=== PATIENT | male | born 1950 | race African-American/Black ===

== ENCOUNTER 2021-04-01 14:17 | Observation (INO) | payer OTHER ==
[2021-04-01 15:27] LABS: Absolute Lymphocytes (CBC) 1.1 K/uL (0.7-4.9); Basophils % 0.2 % (0-1.3); Hematocrit 39.4 % (39.6-49.0); Lymphocytes % 16.6 % (15.3-44.8); MPV 8.4 fL (7.6-11.3); RBC Red Blood Cell Count 4.33 M/uL (4.33-5.43)
--- NOTE | 2021-04-01 15:30 | RAD REPORT ---
EXAM DESCRIPTION: CT - CTHCSPWOC - 04/01/2021 2:56 pm CLINICAL HISTORY: syncope, head and neck injury COMPARISON: No comparisons TECHNIQUE: Axial 5 mm thick images of the head were obtained. Axial 2 mm thick images of the cervic al spine were obtained with sagittal and coronal reconstruction images generated and reviewed. All CT scans are performed using dose optimization technique as appropriate and may include automated exposure control or mA/KV adjustment according to patient size. FINDINGS: No intracranial hemorrhage, mass, edema or acute intracranial finding. No suspicion for ac [place] infarction. Mild atrophy and chronic ischemic changes are present. Ventricles are in proportion t o the amount of volume loss. Dense arterial tree calcifications are present. Mastoid air cells and pa ranasal sinuses are clear. No globe or orbit abnormality seen. Cervical bodies are normal in height. There is minimal 2 mm retrolisthesis C5 on C6 with significant disc space narrowing and endplate spurring. Alignment is otherwise normal. C6-7 and C7- S1 disc space narrowing also present. No fracture or acute bony abnormality. Facet joint degenerative changes are present. This is prominent on the right at C3-4 without stenosis. Left foraminal stenosis present at C5-6. Central canal detail is inherently limited. No paraspinal mass or hematoma. IMPRESSION: Patient has atrophy and chronic ischemic changes present but no hemorrhage or acute intr acranial finding. Cervical spine degenerative changes are present as detailed. No fracture or acute finding seen.
[2021-04-01 15:36] LABS: Protime INR 1.04
[2021-04-01 15:45] LABS: ALT/SGPT 43 U/L (12-78); AST/SGOT 20 U/L (15-37); Alkaline Phosphatase 63 U/L (45-117); BUN Blood Urea Nitrogen 23 mg/dL (7-18); Bicarbonate 28 mmol/L (21-32); Bilirubin Direct 0.1 mg/dL (0-0.2); Bilirubin Total 0.6 mg/dL (0.2-1.0); Creatine Phosphokinase 106 U/L (39-308); Glucose Level 96 mg/dL (74-106); Lipase 196 U/L (73-393); Magnesium 2.5 mg/dL (1.8-2.4); Potassium 4.4 mmol/L (3.5-5.1); Sodium Level 143 mmol/L (136-145); Troponin (Emerg Dept Use Only) < 0.02 ng/mL (0.0-0.045)
[2021-04-01 15:52] LABS: CKMB Creatine Kinase MB < 1.0 ng/mL (1.0-3.6)
[2021-04-01] MEDS ORDERED: NA CHLORIDE 0.9% 1,000 ML ONE (16:13)
[2021-04-01 16:39] LABS: Urine Blood Negative (Negative); Urine Glucose Negative (Negative); Urine Protein Negative (Negative); Urine Specific Gravity 1.025 (1.005-1.030)
--- NOTE | 2021-04-01 16:59 | ER ---
Nurse's Notes [facility] Name: Fady Burgess Age: 70 yrs Sex: Male : 1950 Arrival Date: 04/01/2021 Time: 14:21 Bed 18 Private MD: Diagnosis: Nonspecific low blood-pressure reading-SYNCOPE Presentation: 04/01 14:37 Chief complaint: Patient states: I have been feeling dizzy on and off since about 7 ld1 months ago. Today I was outside talking with my neighbor and I fainted. I took my BP and it was 70/64. Upon arrival to ER BP is 120/65. Coronavirus screen: At this time, the client does not indicate any symptoms associated with coronavirus-19. Ebola Screen: No symptoms or risks identified at this time. Initial Sepsis Screen: Does the patient meet any 2 criteria? No. Patient's initial sepsis screen is negative. Does the patient have a suspected source of infection? No. Patient's initial sepsis screen is negative. Risk Assessment: Do you want to hurt yourself or someone else? Patient reports no desire to harm self or others. Onset of symptoms was April 01, 2021. 14:37 Method Of Arrival: Ambulatory ld1 14:37 Acuity: JOAN 3 ld1 Triage Assessment: 14:40 General: Appears in no apparent distress. comfortable, Behavior is calm, cooperative, ld1 appropriate for age. Pain: Denies pain. EENT: No signs and/or symptoms were reported regarding the EENT system. Neuro: Level of Consciousness is awake, alert, obeys commands, Oriented to person, place, time, situation. Cardiovascular: Capillary refill < 3 seconds Patient's skin is warm and dry. Respiratory: Airway is patent Respiratory effort is even, unlabored, Respiratory pattern is regular, symmetrical. GI: Abdomen is round non-distended. : No signs and/or symptoms were reported regarding the genitourinary system. Derm: No signs and/or symptoms reported regarding the dermatologic system. Musculoskeletal: No signs and/or symptoms reported regarding the musculoskeletal system. Historical: - Allergies: 14:39 No Known Allergies; ld1 - Home Meds: 14:40 benazepril 10 mg oral tab 1 tab once daily [Active]; atorvastatin 20 mg oral tab 1 tab ld1 once daily [Active]; alfuzosin 10 mg oral Tb24 1 tab once daily [Active]; finasteride 5 mg oral tab 1 tab once daily [Active]; Centrum Ultra Men's 8 mg iron- 200 mcg-600 mcg oral tab [Active]; - PMHx: 14:40 Hypertensive disorder; Hypercholesterolemia; BPH; ld1 - PSHx: 14:40 Prostate surgery; ld1 - Immunization history:: Adult Immunizations up to date, Client reports receiving the 2nd dose of the Covid vaccine. - Social history:: Smoking status: Patient denies any tobacco usage or history of. Patient uses alcohol, occasionally. Patient/guardian denies using alcohol, street drugs, The patient lives with family. - Family history:: not pertinent. Screenin:30 Abuse screen: Denies threats or abuse. sl2 16:30 Nutritional screening: No deficits noted. Tuberculosis screening: No symptoms or risk sl2 factors identified. Never had TB. Possible symptoms: None Risk factors: None. Fall Risk None identified. No fall in past 12 months (0 pts). No secondary diagnosis (0 pts). No IV (0 pts). Ambulatory Aid- None/Bed Rest/Nurse Assist (0 pts). Gait- Normal/Bed Rest/Wheelchair (0 pts) Mental Status- Oriented to own ability (0 pts). Total Meza Fall Scale indicates No Risk (0-24 pts). Vital Signs: 14:37 BP 120 / 65; Pulse 81; Resp 18; Temp 97.9(TE); Pulse Ox 99% on R/A; Weight 83.91 kg; ld1 Height 5 ft. 6 in. (167.64 cm); Pain 0/10; 16:30 BP 142 / 61; Pulse 63; Resp 18; Temp 98(O); Pulse Ox 100% on R/A; sl2 17:23 BP 141 / 76; Pulse 73; Resp 15; Pulse Ox 97% on R/A; Pain 0/10; ss 18:30 BP 146 / 85; Pulse 69; Resp 18; Temp 98.2(O); Pulse Ox 100% ; sl2 19:00 BP 158 / 70; Pulse 61; Resp 16; Pulse Ox 99% on R/A; sl2 20:30 BP 126 / 60; Pulse 68; Resp 20; Temp 98.6(O); Pulse Ox 99% on R/A; cc4 14:37 Body Mass Index 29.86 (83.91 kg, 167.64 cm) ld1 ED Course: 14:21 Patient arrived in ED. mr 14:39 Triage completed. ld1 14:40 Arm band placed on left wrist. ld1 14:45 Jace Olivares MD is Attending Physician. ma2 14:50 Monserrat Mcghee, RN is Primary Nurse. sl2 14:56 CT Head C Spine In Process Unspecified. EDMS 15:15 Inserted saline lock: 22 gauge in left antecubital area, using aseptic technique. sl2 15:19 CPK Sent. mh5 15:19 Creatine Phosphokinase Sent. mh5 15:19 Troponin (emerg Dept Use Only) Sent. mh5 15:19 Ptt, Activated Sent. mh5 15:19 Protime (+inr) Sent. 5 15:19 Magnesium Sent. 5 15:19 Lipase Sent. 5 15:19 Hepatic Function Sent. 5 15:19 Ckmb Sent. 5 15:19 CBC with Diff Sent. 5 15:19 Basic Metabolic Panel Sent. mh5 16:30 Patient has correct armband on for positive identification. Placed in gown. Bed in low sl2 position. Call light in reach. Side rails up X2. Adult w/ patient. 16:30 No provider procedures requiring assistance completed. sl2 16:58 Augustin Arambula MD is Hospitalizing Provider. ma2 Administered Medications: 15:45 Drug: NS 0.9% 1000 ml Route: IV; Rate: 1 bolus; Site: left antecubital; sl2 17:23 Follow up: IV Status: Completed infusion; IV Intake: 1000ml ss Intake: 17:23 IV: 1000ml; Total: 1000ml. ss Outcome: 16:59 Decision to Hospitalize by Provider. ma2 22:23 Patient left the ED. cc4 Signatures: Dispatcher [employer] YONGVT Julia Gray Stephanie Ramos, RN RN Carmelita eVga Jace Yoder MD MD nd2 Mandy Rader RN RN ld1 Zehra Medrano RN RN cc4 Monserrat Mcghee, CHAPIN RN 2
--- NOTE | 2021-04-01 16:59 | EDPHYS ---
Physician Documentation [facility] Name: Fady Burgess Age: 70 yrs Sex: Male : 1950 Arrival Date: 04/01/2021 Time: 14:21 Bed 18 Private MD: ED Physician Jace Olivares HPI: 04/01 16:16 This 70 yrs old Black Male presents to ER via Ambulatory with complaints of Fainting. ma2 16:16 The patient has experienced syncope. Onset: The symptoms/episode began/occurred ma2 suddenly, 1 hour(s) ago. Associated injury: The patient did not suffer any apparent associated injury. Associated signs and symptoms: Pertinent positives: dizziness, Pertinent negatives: ataxia, combativeness, diarrhea, dizziness, headache, nausea, numbness, seizure, tingling, vomiting, weakness. Current symptoms: Currently, the patient is not experiencing any symptoms. The patient has experienced similar episodes in the past. syncope twice at home, bp was 60/40 , at this time patient has no symptoms . Historical: - Allergies: 14:39 No Known Allergies; ld1 - Home Meds: 14:40 benazepril 10 mg oral tab 1 tab once daily [Active]; atorvastatin 20 mg oral tab 1 tab ld1 once daily [Active]; alfuzosin 10 mg oral Tb24 1 tab once daily [Active]; finasteride 5 mg oral tab 1 tab once daily [Active]; Centrum Ultra Men's 8 mg iron- 200 mcg-600 mcg oral tab [Active]; - PMHx: 14:40 Hypertensive disorder; Hypercholesterolemia; BPH; ld1 - PSHx: 14:40 Prostate surgery; ld1 - Immunization history:: Adult Immunizations up to date, Client reports receiving the 2nd dose of the Covid vaccine. - Social history:: Smoking status: Patient denies any tobacco usage or history of. Patient uses alcohol, occasionally. Patient/guardian denies using alcohol, street drugs, The patient lives with family. - Family history:: not pertinent. ROS: 16:16 Constitutional: Negative for fever, chills, and weight loss. ma2 16:16 All other systems are negative. Exam: 16:16 Abdomen/GI: Exam negative for ma2 16:16 Constitutional: This is a well developed, well nourished patient who is awake, alert, and in no acute distress. Head/Face: Normocephalic, atraumatic. Eyes: Pupils equal round and reactive to light, extra-ocular motions intact. Lids and lashes normal. Conjunctiva and sclera are non-icteric and not injected. Cornea within normal limits. Periorbital areas with no swelling, redness, or edema. ENT: Nares patent. No nasal discharge, no septal abnormalities noted. Tympanic membranes are normal and external auditory canals are clear. Oropharynx with no redness, swelling, or masses, exudates, or evidence of obstruction, uvula midline. Mucous membranes moist. Neck: Trachea midline, no thyromegaly or masses palpated, and no cervical lymphadenopathy. Supple, full range of motion without nuchal rigidity, or vertebral point tenderness. No Meningismus. Chest/axilla: Normal chest wall appearance and motion. Nontender with no deformity. No lesions are appreciated. Cardiovascular: Regular rate and rhythm with a normal S1 and S2. No gallops, murmurs, or rubs. Normal PMI, no JVD. No pulse deficits. Respiratory: Lungs have equal breath sounds bilaterally, clear to auscultation and percussion. No rales, rhonchi or wheezes noted. No increased work of breathing, no retractions or nasal flaring. Abdomen/GI: Soft, non-tender, with normal bowel sounds. No distension or tympany. No guarding or rebound. No evidence of tenderness throughout. Back: No spinal tenderness. No costovertebral tenderness. Full range of motion. Skin: Warm, dry with normal turgor. Normal color with no rashes, no lesions, and no evidence of cellulitis. MS/ Extremity: Pulses equal, no cyanosis. Neurovascular intact. Full, normal range of motion. Neuro: Awake and alert, GCS 15, oriented to person, place, time, and situation. Cranial nerves II-XII grossly intact. Motor strength 5/5 in all extremities. Sensory grossly intact. Cerebellar exam normal. Normal gait. Vital Signs: 14:37 BP 120 / 65; Pulse 81; Resp 18; Temp 97.9(TE); Pulse Ox 99% on R/A; Weight 83.91 kg; ld1 Height 5 ft. 6 in. (167.64 cm); Pain 0/10; 16:30 BP 142 / 61; Pulse 63; Resp 18; Temp 98(O); Pulse Ox 100% on R/A; sl2 17:23 BP 141 / 76; Pulse 73; Resp 15; Pulse Ox 97% on R/A; Pain 0/10; ss 18:30 BP 146 / 85; Pulse 69; Resp 18; Temp 98.2(O); Pulse Ox 100% ; sl2 19:00 BP 158 / 70; Pulse 61; Resp 16; Pulse Ox 99% on R/A; sl2 20:30 BP 126 / 60; Pulse 68; Resp 20; Temp 98.6(O); Pulse Ox 99% on R/A; cc4 14:37 Body Mass Index 29.86 (83.91 kg, 167.64 cm) ld1 MDM: 15:19 Patient medically screened. ma2 16:16 Differential Diagnosis: cardiac arrhythmia, emotional response, idiopathic syncope, ma2 sepsis, transient ischemic attack, vasovagal episode. 16:55 Data reviewed: vital signs, nurses notes. Counseling: I had a detailed discussion with ma2 the patient and/or guardian regarding: the historical points, exam findings, and any diagnostic results supporting the discharge/admit diagnosis, the presence of at least one elevated blood pressure reading (>120/80) during this emergency department visit, the need for further work-up and treatment in the hospital. Response to treatment: the patient's symptoms have markedly improved after treatment. 04/01 14:45 Order name: Basic Metabolic Panel; Complete Time: 16: [facility] 04/01 14:45 Order name: CBC with Diff; Complete Time: 16: [facility] 04/01 14:45 Order name: CPK [facility] 04/01 14:45 Order name: Ckmb; Complete Time: 16: [facility] 04/01 14:45 Order name: Hepatic Function; Complete Time: 16: [facility] 04/01 14:45 Order name: Lipase; Complete Time: 16:10 [facility] 04/01 14:45 Order name: Magnesium; Complete Time: 16: [facility] 04/01 14:45 Order name: Protime (+inr); Complete Time: 16:10 [facility] 04/01 14:45 Order name: Ptt, Activated; Complete Time: 16: [facility] 04/01 14:45 Order name: Troponin (emerg Dept Use Only); Complete Time: 16:10 [facility] 04/01 14:46 Order name: Creatine Phosphokinase; Complete Time: 16:10 [facility] 04/01 16:39 Order name: Urine Dipstick-Ancillary; Complete Time: 16:59 [facility] 04/01 19:37 Order name: COVID-19 SARS RT PCR (Document "Date of Onset" if Symptomatic) tt3 04/01 20:55 Order name: SARS-COV-2 RT PCR [facility] 04/01 14:45 Order name: CT Head C Spine; Complete Time: 16:10 [facility] 04/01 14:45 Order name: EKG; Complete Time: 14:46 [facility] 04/01 14:45 Order name: Cardiac monitoring; Complete Time: 15:19 [facility] 04/01 14:45 Order name: EKG - Nurse/Tech; Complete Time: 15:19 [facility] 04/01 14:45 Order name: IV Saline Lock; Complete Time: 15:19 [facility] 04/01 14:45 Order name: Labs collected and sent; Complete Time: 15:18 [facility] 04/01 14:45 Order name: NPO; Complete Time: 16:19 [facility] 04/01 14:45 Order name: O2 Per Protocol; Complete Time: 16:13 [facility] 04/01 14:45 Order name: O2 Sat Monitoring; Complete Time: 16:13 [facility] 04/01 14:45 Order name: Urine Dipstick-Ancillary (obtain specimen); Complete Time: 17:24 ma2 Administered Medications: 15:45 Drug: NS 0.9% 1000 ml Route: IV; Rate: 1 bolus; Site: left antecubital; sl2 17:23 Follow up: IV Status: Completed infusion; IV Intake: 1000ml ss Disposition Summary: 04/01/21 16:59 Hospitalization Ordered Hospitalization Status: Observation ma2 Provider: Augustin Arambula ma2 Location: Telemetry/MedSurg (observation) ma2 Condition: Stable ma2 Problem: new ma2 Symptoms: are unchanged ma2 Bed/Room Type: Standard [facility] Room Assignment: 201(04/01/21 21:16) Diagnosis - Nonspecific low blood-pressure reading - SYNCOPE ma2 Forms: - Medication Reconciliation Form ma2 - SBAR form nh2 Signatures: Dispatcher [employer] Trena Zamorano RN RN cg Jace Olivares MD MD ma2 Mandy Rader RN RN ld1 Monserrat Mcghee RN RN sl2 Stephanie Ramos RN ss Corrections: (The following items were deleted from the chart) 21:16 16:59 daniel
--- NOTE | 2021-04-01 18:16 | P.HP ---
Certification for Inpatient Patient admitted to: Observation With expected LOS: <2 Midnights Practitioner: I am a practitioner with admitting privileges, knowledge of patient current condition, hospital course, and medical plan of care. Services: Services provided to patient in accordance with Admission requirements found in Title 42 Section 412.3 of the Code of Federal Regulations Patient History Date of Service: 04/01/21 Reason for admission: Syncope, hypertension History of Present Illness: 70-year-old male, PMH: Hypertension, BPH, hypercholesterolemia Patient presented to the ED after a syncopal event this morning around 11 AM. Patient was standing outside talking with his neighbor when he felt very weak and slowly fell to the floor. He denies hitting his head or completely losing consciousness. His neighbor helped him up to his feet they continue the conversation, and patient again felt like his legs gave out under him and slowly lowered to the floor again. He went inside and checked his blood pressure was noted to be 65/44, recheck a few minutes later on the opposite arm 175/50. He called his PCP who recommended presentation to the ED. In the ED he was noted to have normal blood pressure, >120/60 consistently. ER physician requested observation overnight. On further discussion with the patient and his , he has been feeling dizzy for several months, he recently saw his PCP 1-2 weeks ago, was told to cut his blood pressure in half. Patient and state his morning blood pressure prior to taking medications [place] consistently been [id number] systolic, despite this his PCP is told him to continue with his blood pressure medication. He took his blood pressure medication this morning approximately 1.5 hours later is when this episode occurred. Otherwise he has been in his usual state of health, no other changes in medications, denies fever/chills/nausea, no new numbness/tingling, known focal weakness. CT head and C-spine were negative, b lood work unremarkable. - Past Medical/Surgical History -: Hypertension -: BPH -: Polypectomy -: Prostate partial resection - Family History Family History: Reviewed- Non-Contributory - Social History Smoking Status: Never smoker Alcohol use: Yes Place of Residence: Home Review of Systems 10-point ROS is otherwise unremarkable Physical Examination - Physical Exam General: Alert, In no apparent distress, Oriented x3 HEENT: Sclerae nonicteric Neck: Supple, No LAD Respiratory: Clear to auscultation bilaterally, Normal air movement Cardiovascular: No edema, Regular rate/rhythm Gastrointestinal: Soft and benign, Non-distended, No tenderness Integumentary: No significant lesion, No erythema Neurological: Normal speech, Normal strength at 5/5 x4 extr, Cranial nerves 3-12 intact, Normal affect - Studies Laboratory Data (last 24 hrs) 04/01/21 15:15: PT 12.0, INR 1.04, APTT 37.9 H 04/01/21 15:15: WBC 6.40, Hgb 13.1 L, Hct 39.4 L, Plt Count 266 04/01/21 15:15: Sodium 143, Potassium 4.4, BUN 23 H, Creatinine 1.11, Glucose 96, Magnesium 2.5 H, Total Bilirubin 0.6, AST 20, ALT 43, Alkaline Phosphatase 63, Lipase 196 Assessment and Plan - Advance Directives Does patient have a Living Will: No Does patient have a Durable POA for Healthcare: No Physician Review Additional Text: Problem list Near syncopal episode Hypotension History of hypertension BPH -Patient received some fluids in the ED, blood pressure has been consistently over 120s systolic since arrival to the ED. Patient feels back to his baseline, has been ambulating without dizziness/syncopal episodes, EKG unremarkable -Suspect hypotension secondary to his blood pressure medication, and seems at his baseline blood pressure has been low to begin with. -Recommend patient discontinue his blood pressure medication. He may need to discontinue one of his prostate medications as well, as this may be contributing to his dizziness and hypotension. -Low likelihood of cardiac etiology of this syncope/near syncopal event, however will monitor on telemetry overnight VTE: Ambulatory Code: Full Dispo: Anticipate discharge home tomorrow Time Spent Managing Pts Care (In Minutes): 60
[2021-04-01 22:47] VITALS: BMI 28.8
[2021-04-02 05:18] VITALS: BP 121/59; TEMP 97.6
[2021-04-02 06:50] LABS: BUN Blood Urea Nitrogen 19 mg/dL (7-18); Bicarbonate 25 mmol/L (21-32); Glucose Level 108 mg/dL (74-106); Potassium 4.1 mmol/L (3.5-5.1); Sodium Level 144 mmol/L (136-145)
[2021-04-02 06:51] LABS: Magnesium 2.3 mg/dL (1.8-2.4); Thyroid Stimulating Hormone 0.912 uIU/mL (0.360-3.740)
[2021-04-02 08:37] VITALS: O2SAT 98
--- NOTE | 2021-04-02 15:53 | P.DS ---
Admission Date: 04/01/21 Discharge Date: 04/02/21 Disposition: ROUTINE DISCHARGE Discharge Condition: GOOD Reason for Admission: Syncope, hypertension Procedures: CT Head/Cspine: IMPRESSION: Patient has atrophy and chronic ischemic changes present but no hemorrhage or acute intracranial finding. Cervical spine degenerative changes are present as detailed. No fracture or acute finding seen. Problem list Near syncopal episode Hypotension History of hypertension BPH Brief History of Present Illness: 70-year-old male, PMH: Hypertension, BPH, hypercholesterolemia Patient presented to the ED after a syncopal event this morning around 11 AM. Patient was standing outside talking with his neighbor when he felt very weak and slowly fell to the floor. He denies hitting his head or completely losing consciousness. His neighbor helped him up to his feet they continue the conversation, and patient again felt like his legs gave out under him and slowly lowered to the floor again. He went inside and checked his blood pressure was noted to be 65/44, recheck a few minutes later on the opposite arm 175/50. He called his PCP who recommended presentation to the ED. In the ED he was noted to have normal blood pressure, >120/60 consistently. ER physician requested observation overnight. On further discussion with the patient and his , he has been feeling dizzy for several months, he recently saw his PCP 1-2 weeks ago, was told to cut his blood pressure in half. Patient and state his morning blood pressure prior to taking medications has consistently been [id number] systolic, despite this his PCP is told him to continue with his blood pressure medication. He took his blood pressure medication this morning approximately 1.5 hours later is when this episode occurred. Otherwise he has been in his usual state of health, no other changes in medications, denies fever/chills/nausea, no new numbness/tingling, known focal weakness. CT head and C-spine were negative, blood work unremarkable. Hospital Course: Monitored on telemetry without events. Patient's blood pressure remained normal without any intervention. He ambulated without issue and was feeling like his usual self without any dizziness. He was discharged home. Suspect his hypotension is a result of his medications. Patient has an appointment with his urologist next week, to discuss his 2 other BPH medications which may be contributing as well. Vital Signs/Physical Exam: Physical Exam General: Alert, In no apparent distress, Oriented x3 HEENT: Sclerae nonicteric Neck: Supple, No LAD Respiratory: Clear to auscultation bilaterally, Normal air movement Cardiovascular: No edema, Regular rate/rhythm Gastrointestinal: Soft and benign, Non-distended, No tenderness Integumentary: No significant lesion, No erythema Neurological: Normal speech, Normal strength at 5/5 x4 extr, Normal affect Temp Pulse Resp BP Pulse Ox 97.6 F 64 18 121/59 L 95 04/02/21 04:00 04/02/21 04:00 04/02/21 04:00 04/02/21 04:00 04/02/21 04:00 Laboratory Data at Discharge: WBC 6.40 K/uL (4.3-10.9) 04/01/21 15:15 Hgb 13.1 g/dL (13.6-17.9) L 04/01/21 15:15 Hct 39.4 % (39.6-49.0) L 04/01/21 15:15 Plt Count 266 K/uL (152-406) 04/01/21 15:15 PT 12.0 SECONDS (9.5-12.5) 04/01/21 15:15 INR 1.04 04/01/21 15:15 APTT 37.9 SECONDS (24.3-36.9) H 04/01/21 15:15 Sodium 144 mmol/L (136-145) 04/02/21 06:02 Potassium 4.1 mmol/L (3.5-5.1) 04/02/21 06:02 BUN 19 mg/dL (7-18) H 04/02/21 06:02 Creatinine 0.81 mg/dL (0.55-1.3) 04/02/21 06:02 Glucose 108 mg/dL (74-106) H 04/02/21 06:02 Magnesium 2.3 mg/dL (1.8-2.4) 04/02/21 06:02 Total Bilirubin 0.6 mg/dL (0.2-1.0) 04/01/21 15:15 AST 20 U/L (15-37) 04/01/21 15:15 ALT 43 U/L (12-78) 04/01/21 15:15 Alkaline Phosphatase 63 U/L (45-117) 04/01/21 15:15 Lipase 196 U/L (73-393) 04/01/21 15:15 Home Medications: Alfuzosin HCl [Alfuzosin HCl ER] 10 mg PO DAILY 04/01/21 Atorvastatin Calcium 20 mg PO DAILY 04/01/21 Finasteride 5 mg PO DAILY 04/01/21 Multivit-Mins/Iron/Folic/Lycop [Centrum Ultra Men's Tablet] 1 tab PO DAILY 04/01/21 Physician Discharge Instructions: Your blood pressure was normal since presentation to ER. Your low blood pressure is likely due to the combination of your benazepril and prostate medications. You reported having systolic blood pressures 95-110 in the morning at home. Recommend stopping your benazepril, monitor your blood pressure daily, record in a blood pressure diary. Follow up with your PCP within 1 week to review blood pressure Follow up with your Urologist next week as already scheduled. Diet: Regular Activity: Ad jm Followup: Jesu Damon MD [Primary Care Provider] - (Call to schedule appointment.) Time spent managing pt's care (in minutes): 45
--- NOTE | 2021-04-02 20:38 | EKG ---
Test Date: 2021-04-01 Test Time: 15:34:59 Consulting It Architect: MARYAM MEASUREMENT RESULTS: Intervals: Rate: 70 SD: 126 QRSD: 68 QT: 414 QTc: 447 [place]: P: 47 SD: 126 QRS: 15 T: -10 INTERPRETIVE STATEMENTS: Normal sinus rhythm Nonspecific ST abnormality Abnormal ECG No previous ECG available for comparison Electronically Signed On 04-02-21 20:35:13 TYPER by Roger Cat
--- OUTSIDE RECORDS SUMMARY | 2021-04-03 21:41 | XMS REPORT | Continuity of Care Document ---
:1950 Author Organization [facility] t Address [address] [place] [address] Care Team Providers Name Role Phone Gigi Andrade MD Primary Care Physician GIGI ANDRADE Attending Clinician Unavailable Mallory WRAPPER SIZER, Rafeala Attending Clinician Unavailable Selene Marin Vaccine - Moderna Attending Clinician Unavaila ble RAYMOND Attending Clinician Unavailable Payers Payer Name Policy Type Policy Number Effective Date Expiration Date S sade MEDICARE PART A [id number] 2017 AND B 00:00:00 Problems Condition Condition Condition Status Onset Resolution Last Treating Co mments Source Name Details Category Date Date Treatment Clinician Date Anemia Anemia Disease Active 2020-05 [facility] 0-12 [facility] 00:00: 00 Malignant Malignant Disease Active Overview: [facility] neoplasm neoplasm 11-19 [facility] of 00:00: g of this prostate prostate 00 note might be different from the original. He has been informed that his Mireille score is 6.He is under the care of a urologist , who is monitorin g PSA. BPH BPH Disease Active 2018-05 [facility] (benign (benign 0-21 Health prostatic prostatic 00:00: hyperplasi hyperplasi 00 a) a) Essential Essential Disease Active 2018-05 UT hypertensi hypertensi 0-21 He alth on on 00:00: 00 Cataract Cataract Disease Active 2018-05 [facility] 0-21 Health 00:00: 00 Elevated Elevated Disease Active 2018-05 UT hemoglobin hemoglobin 0-21 He alth A1c A1c 00:00: 00 Erectile Erectile Disease Active 2018-05 UT dysfunctio dysfunctio 0-21 He alth n n 00:00: 00 Exertional Exertional Disease Active 2018-05 U T shortness shortness 0-21 Heal th of breath of breath 00:00: 00 Hyperchole Hyperchole Disease Active 2018-05 U T sterolemia sterolemia 0-21 He alth 00:00: 00 Nocturia Nocturia Disease Active 2018-05 [facility] 0-21 Health 00:00: 00 Arthralgia Arthralgia Disease Active 2017-05 U T of of 0-25 Health multiple multiple 00:00: joints joints 00 Benign Benign Disease Active UT colon colon 4-02 Health polyp polyp 00:00: 00 Arcus Arcus Disease Active UT senilis, senilis, 1-26 Health bilateral bilateral 00:00: 00 Carpal Carpal Disease Active UT tunnel tunnel 5-15 Health syndrome, syndrome, 00:00: unspecifie unspecifie 00 d upper d upper limb limb History of History of Problem Resolve Univers acute acute d ity of gouty gouty [place] arthritis arthritis Phys ici ans History of History of Problem Resolve Univers Tendinitis Tendinitis d it y of of left of left [place] shoulder shoulder Physic i ans Carpal Carpal Problem Active Univers tunnel tunnel ity of syndrome syndrome [place] [facility] ans Arcus Arcus Problem Active [facility] senilis, senilis, [place]y of bilateral bilateral [place] [facility] Benign Benign Problem Active [facility] colon colon ity of polyp polyp [place] [facility] ans Arthralgia Arthralgia Problem Active U nivers of of ity of multiple multiple [place] joints joints Physici ans Essential Essential Problem Active Uni vers hypertensi hypertensi it y of on on [place] [facility] Hyperchole Hyperchole Problem Active U nivers sterolemia sterolemia it y of [place] [facility]ici ans Elevated Elevated Problem Active Unive rs hemoglobin hemoglobin it y of A1c A1c [place] [facility] ans BPH BPH Problem Active Univers (benign (benign ity of prostatic prostatic [place] hyperplasi hyperplasi Ph ysici a) a) ans Erectile Erectile Problem Active Unive rs dysfunctio dysfunctio it y of n n [place] [facility] Exertional Exertional Problem Active U nivers shortness shortness ity of of breath of breath [place] [facility] Need for Need for Problem Active Unive rs vaccinatio vaccinatio it y of n for n for [place] zoster zoster Physici ans Cataract Cataract Problem Active Unive rs ity of [place] [facility] ans Nocturia Nocturia Problem Active Unive rs ity of [place] [facility] ans Allergies, Adverse Reactions, Alerts This patient has no known allergies or adverse reactions. Family History Family Member Diagnosis Comments Start Date Stop Date Source Unknown Family Family history of Family History University of Member Diabetes Mellitus [place] [facility] Unknown Family Family history of Family History University of Member Coronary Artery [place] [facility] Disease Mother Family history of Univers ity of Congestive Heart [place] [facility] Failure Sister Family history of Univers ity of Colon Cancer [place] [facility] Social History Social Habit Start Date Stop Date Quantity Comments Source [facility] Alcohol Frequency History [facility] Exposure to Not sure [facility] SARS-CoV-2 (event) Alcohol intake 2021-03-02 2021-03-02 Current drinker of [facility] 00:00:00 00:00:00 alcohol (finding) Alcohol Comment 2020-11-19 2020-11-19 social , beer and [facility] 00:00:00 00:00:00 liquor Tobacco use and 2020-10-12 2020-10-12 Smokeless tobacco [facility] exposure 00:00:00 00:00:00 non-user Sex Ass[birth year] At [birth year] [facility] 00:00:00 00:00:00 Smoking Status Start Date Stop Date Source Never smoked tobacco [facility] Medications Ordered Filled Start Stop Current Ordering Indication Dosage Frequency Signature Comments Components Source Medication Medication Date Date Medication? Clinician (SIG) Name Name Multiple 2020-05 Yes 1{capsu QD Take 1 UT Vitamin 0-12 le} capsule by Health (multivitam 08:30: mouth 1 in) capsule 43 (one) time each day. Multiple 2020-05 Yes 1{capsu QD Take 1 [facility] Vitamin 0-12 le} capsule by Health (multivitam 08:30: mouth 1 in) capsule 43 (one) time each day. Multiple 2020-05 Yes 1{capsu QD Take 1 [facility] Vitamin 0-12 le} capsule by Health (multivitam 08:30: mouth 1 in) capsule 43 (one) time each day. atorvastati 2021- No [id number] 20mg Take 1 UT n (Lipitor) 11-19 tablet (20 H ealth 20 MG 00:00: 04:59 mg total) tablet 00 :00 by mouth every night. benazepril 2021- No [id number] 20mg Take 1 UT (Lotensin) 11-19 tablet (20 He alth 20 MG 00:00: 04:59 mg total) tablet 00 :00 by mouth 1 (one) time each day in the morning. atorvastati 2021- No [id number] 20mg Take 1 UT n (Lipitor) 11-19 tablet (20 H ealth 20 MG 00:00: 04:59 mg total) tablet 00 :00 by mouth every night. benazepril 2021- No [id number] 20mg Take 1 UT (Lotensin) 11-19 tablet (20 He alth 20 MG 00:00: 04:59 mg total) tablet 00 :00 by mouth 1 (one) time each day in the morning. atorvastati 2021- No [id number] 20mg Take 1 UT n (Lipitor) 11-19 tablet (20 H ealth 20 MG 00:00: 04:59 mg total) tablet 00 :00 by mouth every night. benazepril 2021- No [id number] 20mg Take 1 UT (Lotensin) 11-19 tablet (20 He alth 20 MG 00:00: 04:59 mg total) tablet 00 :00 by mouth 1 (one) time each day in the morning. Finasteride Finasteride 2018-05 Yes TAKE 1 Univers 5 MG Oral 5 MG Oral 0-21 TABLET BY ity of Tablet Tablet 00:00: MOUTH [place] 00 EVERY DAY Physici ans Alfuzosin Alfuzosin 2018-05 Yes 1 QD TAKE 1 U nivers HCl ER 10 HCl ER 10 0-21 TABLET ity of MG Oral MG Oral 00:00: DAILY. [place] Tablet Tablet 00 Physici Extended Extended ans Release 24 Release 24 Hour Hour Benazepril Benazepril 2018-05 Yes [facility] QD TAKE ONE Univers HCl - 20 MG HCl - 20 MG 0-21 RAYMOND (1) ity of Oral Tablet Oral Tablet 00:00: M.D. TABLET(S) [place] 00 BY MOUTH Physici ONCE A ans DAY. finasteride 2018-05 Yes TAKE 1 UT (Proscar) 5 0-21 TABLET BY Hea lth MG tablet 00:00: MOUTH 00 EVERY DAY alfuzosin 2018-05 Yes 10mg 10 mg. UT (Uroxatral) 0-21 Health 10 MG 24 hr 00:00: tablet 00 finasteride 2018-05 Yes TAKE 1 UT (Proscar) 5 0-21 TABLET BY Hea lth MG tablet 00:00: MOUTH 00 EVERY DAY alfuzosin 2018-05 Yes 10mg 10 mg. UT (Uroxatral) 0-21 Health 10 MG 24 hr 00:00: tablet 00 finasteride 2018-05 Yes TAKE 1 UT (Proscar) 5 0-21 TABLET BY Hea lth MG tablet 00:00: MOUTH 00 EVERY DAY alfuzosin 2018-05 Yes 10mg 10 mg. UT (Uroxatral) 0-21 Health 10 MG 24 hr 00:00: tablet 00 Tamsulosin Tamsulosin 2017-05 Yes [facility] 1 PO Q PMs Univers HCl - 0.4 HCl - 0.4 1-06 RAYMOND it y of MG Oral MG Oral 00:00: M.D. [place] Capsule Capsule 00 Physici ans Atorvastati Atorvastati 2017-0 Yes [facility] TAKE 1 Univers n Calcium n Calcium 2-17 RAYMOND TABLET BY ity of 20 MG Oral 20 MG Oral 00:00: M.D. MOUTH [place] Tablet Tablet 00 EVERYDAY Physici AT BEDTIME ans Immunizations Ordered Immunization Filled Immunization Date Status Commen ts Source Name Name Covid-19 Moderna 2021-03-17 Completed [facility] SARS-CoV-2 00:00:00 Vaccination Covid-19 Moderna 2021-03-17 Completed [facility] SARS-CoV-2 00:00:00 Vaccination Covid-19 Moderna 2021-03-17 Completed [facility] SARS-CoV-2 00:00:00 Vaccination Covid-19 Moderna 2020-07-14 Completed [facility] SARS-CoV-2 00:00:00 Vaccination Covid-19 Moderna 2020-07-14 [facility]pleted [facility] SARS-CoV-2 00:00:00 Vaccination Covid-19 Moderna 2020-07-14 [facility] SARS-CoV-2 00:00:00 Vaccination Covid-19 Moderna 2020-06-19 Completed [facility] SARS-CoV-2 00:00:00 Vaccination Covid-19 Moderna 2020-06-19 Completed [facility] SARS-CoV-2 00:00:00 Vaccination Covid-19 Moderna 2020-06-19 Completed [facility] SARS-CoV-2 00:00:00 Vaccination Fluzone High-Dose 0.5 2020-02-05 Completed Uni versity of ML Intramuscular 00:00:00 [place] [facility] Suspension Prefilled Syringe Influenza, High Dose 2020-02-05 Completed [facility] Seasonal 00:00:00 Influenza, High Dose 2020-02-05 Completed [facility] Seasonal 00:00:00 Influenza, High Dose 2020-02-05 Completed [facility] Seasonal 00:00:00 Fluzone Quadrivalent 2019-03-11 Completed Univ ersity of 0.5 ML Intramuscular 09:59:00 [facility] Suspension Influenza, High Dose 2019-03-11 Completed [facility] Seasonal 00:00:00 Influenza, 2019-03-11 [facility] injectable, 00:00:00 quadrivalent, preservative free Influenza, High Dose 2019-03-11 Completed [facility] Seasonal 00:00:00 Influenza, 2019-03-11 [facility]pleted [facility] injectable, 00:00:00 quadrivalent, preservative free Influenza, High Dose 2019-03-11 Completed [facility] Seasonal 00:00:00 Influenza, 2019-03-11 Completed [facility] injectable, 00:00:00 quadrivalent, preservative free Fluzone High-Dose 0.5 2018-03-15 Completed Uni versity of ML Intramuscular 09:14:00 [place] [facility] Suspension Prefilled Syringe Influenza, High Dose 2018-03-15 Completed [facility] Seasonal 00:00:00 Influenza, High Dose 2018-03-15 Completed [facility] Seasonal 00:00:00 Influenza, High Dose 2018-03-15 Completed [facility] Seasonal 00:00:00 Pneumococcal 2016-12-12 Completed University o f polysaccharide 11:17:00 [place] [facility] vaccine, 23 valent Pneumococcal 2016-12-12 [facility] Polysaccharide PPV23 00:00:00 Pneumococcal 2016-12-12 Completed [facility] Polysaccharide PPV23 00:00:00 Pneumococcal 2016-12-12 Completed [facility] Polysaccharide PPV23 00:00:00 Prevnar 13 2016-06-16 Completed [facility] 14:15:00 [place] [facility] Suspension Tdap 2016-06-16 Completed [facility] 14:15:00 [place] [facility] ns Pneumococcal 2016-06-16 Completed [facility] Conjugate PCV 13 00:00:00 Tdap 2016-06-16 [facility] 00:00:00 Pneumococcal 2016-06-16 Completed [facility] Conjugate PCV 13 00:00:00 Tdap 2016-06-16 Completed [facility] 00:00:00 Pneumococcal 2016-06-16 Completed [facility] Conjugate PCV 13 00:00:00 Tdap 2016-06-16 Com[facility] 00:00:00 Vital Signs Vital Name Observation Time Observation Value Comments Source BP Systolic 2019-03-11 119 mm[Hg] Location: [facility] :: Position: [place] [facility]ician s Sitting BP Diastolic 2019-03-11 69 mm[Hg] Location: [facility] ::00 Position: [place] [facility]ician s Sitting Height 2019-03-11 66 [in_us] [facility] 09:11:00 [place] [facility] s Weight 2019-03-11 183 [lb_av] [facility] :11: [place] [facility] Body Mass Index 2019-03-11 29.54 kg/m2 University o f Calculated 09:11: [place] [facility] s Temperature 2019-03-11 97.9 [degF] Method: Oral [facility] :11:00 [place] [facility] Heart Rate 2019-03-11 76 /min Location: [facility] 09:11: Apical; [place] [facility] BP Systolic 2018-03-15 126 mm[Hg] Location: [facility] :: Position: [place] Physician s Sitting BP Diastolic 2018-03-15 76 mm[Hg] Location: [facility] :: Position: [place] Physician s Sitting Height 2018-03-15 66 [in_us] [facility] :09:00 [place] [facility] s Weight 2018-03-15 182 [lb_av] [facility] :09:00 [place] [facility] Body Mass Index 2018-03-15 29.38 kg/m2 University o f Calculated 09:09:00 [place] [facility] Temperature 2018-03-15 98.6 [degF] Method: Oral [facility] :09:00 [place] [facility] Heart Rate 2018-03-15 66 /min Location: [facility] 09:09:00 Apical; [place] [facility] Procedures Procedure Date / Time Performing Clinician Source Performed EKG w/Rhythm Strip 2019-03-11 00:00:00 [facility] [QL] CMP W/EGFR 2019-03-11 00:00:00 [facility] [QLH] MICROALBUMIN, 2019-03-11 00:00:00 [facility] [place] [facility] RANDOM URINE Physicians (W/CREATININE) [QL] LIPID PANEL 2019-03-11 00:00:00 [facility] [QLH] HEMOGLOBIN A1c 2019-03-11 00:00:00 [facility] Physicians [QL] CBC (INCLUDES 2019-03-11 00:00:00 [facility] DIFF/PLT) Physicians [QLH] TSH, 3RD 2019-03-11 00:00:00 [place] [facility] [place] GENERATION W/REFLEX TO Physician s FT4 [QLH] URINALYSIS, 2019-03-11 00:00:00 [facility] COMPLETE W/REFLEX TO Physicians CULTURE [QLH] PSA, TOTAL 2019-03-11 00:00:00 [facility] Phys[facility] [QLH] LIPID PANEL 2018-03-15 00:00:00 [facility] Phys[facility] [QLH] CMP W/EGFR 2018-03-15 00:00:00 [facility] [QLH] HEMOGLOBIN A1c 2018-03-15 00:00:00 [facility] Physicians [QLH] CBC (INCLUDES 2018-03-15 00:00:00 [facility] DIFF/PLT) Physicians [QLH] TSH, 3RD 2018-03-15 00:00:00 [facility] [place] GENERATION W/REFLEX TO Physician s FT4 [QLH] HEPATITIS C 2018-03-15 00:00:00 [facility] ANTIBODY Physicians [H] HIV 4TH Gen 2018-03-15 00:00:00 [facility] [place] [facility] [QLH] PSA, TOTAL 2018-03-15 00:00:00 [facility] Phys[facility] [QLH] MICROALBUMIN, 2018-03-15 00:00:00 [facility] RANDOM URINE Physicians (W/CREATININE) [QLH] SED RATE BY 2018-03-15 00:00:00 [facility] MODIFIED [place] Physicians [QLH] RHEUMATOID FACTOR 2018-03-15 00:00:00 [facility] Phys[facility] [[facility]] LUL PANEL, 2018-03-15 00:00:00 [facility] COMPREHENSIVE Physicians [[facility]] URIC ACID 2018-03-15 00:00:00 [facility] [place] [facility] [[facility]] URINALYSIS, 2018-03-15 00:00:00 [facility] COMPLETE W/REFLEX TO Physicians CULTURE History of Complete [facility] [place] Colonoscopy Physicians History of Cataract [facility] o [facility] Physicians Encounters Start End Encounter Admission Attending Care Care Encounter Source Date/Time Date/Time Type Type Clinicians Facility Department ID 2021-04-02 Outpatient RAYMOND [facility] [id number] [place] 12:45:29 [facility] 2019-04-15 Outpatient [facility] CAR [id number] 09:07:20 2021-04-02 2021-04-02 Telephone ROSY Andrade [id number] [place] 00:00:00 00:00:00 Pouran WH[place] [id number] He alth [place] [id number] MULTI [id number] SPECIALTY 3 2021-04-01 2021-04-01 Telephone Carmel Tejada [id number] [place] 00:00:00 00:00:00 Mallory, Jourdanfredrick [place] [id number] Health [place] [id number] MULTI [id number] SPECIALTY 1 2021-03-17 2021-03-17 Immunizati ROSY Marin [id number] [place] 08:05:56 09:11:12 on Covid [place] [id number] He alth Vaccine - [place] [id number] Moderna MULTI [id number] SPECIALTY 3 2019-04-23 2019-04-23 Outpatient [facility] CAR [id number] [facility] 09:04:00 09:04:00 2019-03-11 2019-03-11 Appointmen ROSY ANDRADE Multispecia [id number] [facility] [place] [facility] 09:00:00 09:00:00 ttadeo HYMAN - itshahab of Danette ANDRADE WhitneyYisel Diaz M.D. [facility] 2018-03-15 2018-03-15 Appointmen ROSY ANDRADE Whitney [id number] Univers 09:00:00 09:00:00 t; Eliu YU M.D. [place] Yisel YU M.D. [facility] 2016-12-12 2016-12-12 Appointmen ROSY ANDRADE [id number] Univers 10:15:00 10:15:00 t; Rachelle YU M.D. [place] Yisel YU M.D. [facility] 2016-06-16 2016-06-16 Appointmen ROSY ANDRADE UTP [id number] Univers 13:30:00 13:30:00 t; Rachelle YU M.D. [place] Yisel YU M.D. [facility] Results Test Description Test Time Test Comments Results Result Comments Source [QL] CBC (INCLUDES DIFF/PLT) 2019-03-11 10:15:01 Test Item Value Reference Range Interpretation Comme nts WBC (test code = 6690-2) 5.9 {K/CMM} 3.7-10.4 RBC; Below Low Threshold (test code = 789-8) 4.51 {M/CMM} 4.70-6.10 Hgb; Below Low Threshold (test code = 718-7) 13.8 g/dl 14.0-18.0 Hct; Below Low Threshold (test code = 48797-9) 41.3 % 42.0-54 .0 MCV (test code = 787-2) 91.6 fL 80.0-94.0 MCH (test code = 785-6) 30.5 pg 27.0-31.0 MCHC (test code = 786-4) 33.3 g/dl 32.0-36.0 RDW (test code = 788-0) 14.2 % 11.5-14.5 Platelet (test code = 27323-8) 197 {K/CMM} 133-450 Mean Platelet Volume (test code = 52454-8) 9.7 fL 7.4-10.4 University [facility]] [id number] 10:15:01 Test Item Value Reference Range Interpretation Comments Segmented Neutrophils (test code 67.4 % 45.0-75.0 = 45115-7) Monocytes (test code = 75752-9) 7.5 % 2.0-12.0 Lymphocytes (test code = 20451-7) 20.1 % 20.0-40.0 Eosinophils; Above High Threshold 4.6 % 0.0-4.0 (test code = 29590-0) Basophils (test code = 706-2) 0.4 % 0.0-1.0 Segs-Bands # (test code = 4.0 {K/CMM} 1.5-8.1 48381-6) Lymphocytes # (test code = 1.2 {K/CMM} 1.0-5.5 16848-0) Monocytes # (test code = 92261-6) 0.4 {K/CMM} 0.0-0.8 Eosinophils # (test code = 0.3 {K/CMM} 0.0-0.5 15634-0) [facility]] HEMOGLOBIN [id number] 10:15:01 Test Item Value Reference Range Interpretation Comments Hemoglobin A1c; Above High Threshold 6.1 % <=5.6 (test code = 4548-4) [facility]] CMP [id number] 10:15:01 Test Item Value Reference Range Interpretation Comments Sodium Level 143 {mEq/l} 135-145 (test code = 2951-2) Potassium Level 4.2 {mEq/l} 3.5-5.1 (test code = 2823-3) Chloride Level 108 {mEq/l} 95-109 (test code = 5-0) Carbon Dioxide 24 {mEq/l} 24-32 (test code = 2027-9) AGAP (test code = 15.2 {mEq/l} 10.0-20.0 18847-5) Glucose Lvl (test 99 mg/dl 70-99 Adult refe rence range code = 2345-7) values reflec t the clinical guidel inesof the [place] Diabet es Association. Creatinine Lvl 0.80 mg/dl 0.50-1.40 (test code = 2160-0) Blood Urea 23 mg/dl 7-22 Nitrogen; Above High Threshold (test code = 3094-0) BUN/Creatinine 29 6-25 Ratio; Above High Threshold (test code = 3097-3) Total Protein 7.5 g/dl 6.4-8.4 (test code = 2885-2) Albumin Lvl (test 4.4 g/dl 3.5-5.0 code = 1751-7) Globulin (test 3.1 g/dl 2.7-4.2 code = 00147-5) A/G Ratio (test 1.4 0.7-1.6 code = 1759-0) Calcium Level 10.0 mg/dl 8.5-10.5 Total (test code = 22864-3) ALT (test code = 41 u/l 0-65 1743-4) AST (test code = 26 u/l 0-37 56203-1) Bili Total (test 0.4 mg/dl 0.2-1.3 code = 1975-2) Alk Phos (test 59 u/l 39-136 The pediatric reference code = 1783-0) ranges for is test represent a CLSI-basedtrans ference of the CALIPER mega abase of pediatric refer ence intervals to eSiemens Boston analyzer (Clinical Biochemistry 46 (2013): 6323-4208). [facility] has not internally validated these reference ranges and therefore they should be used only in th e context of a thoroughcl inical assessment. eGFR (test code = 106 The eGFR i s calculated 07320-2) {ML/MIN/1.7} using the CKD-E PI formula. In mos t young, healthyindividu als the eGFR will be >9 0 mL/min/1.73m2. The eGFR declines with a ge. AneGFR of 60-89 may be normal in some population s, particularly th e elderly, forwhom the CKD -EPI formula has not been extensively tyesha idated. Use of the eGFR isnot recommended in the following populations:Ind ividuals with unstable c reatinine concentrations, including patient s and those with seri ous co-morbid conditions.Alvina ents with extremes in mus milly mass or diet.The mega a above are obtained fr om the National Kidney Disease Education Progr am(NKDEP) which additiona lly recommends that when the eGFR is used in patientswith ex tremes of body mass index for purposes of narciso g dosing, the eGFR should be multiplied by t he estimated BMI. [facility]] LIPID [id number] 10:15:01 Test Item Value Reference Range Interpretation Comments Chol; Above High Threshold (test 201 mg/dl <=199 code = 2093-3) Trig; Above High Threshold (test 199 mg/dl <=149 code = 2571-8) HDL Cholesterol; Below Low 57 mg/dl >=61 Threshold (test code = 2085-9) CHD Risk; Below Low Threshold (test 3.53 4.00-7.30 code = 30909-6) LDL; Above High Threshold (test 104 mg/dl <=99 code = 52501-7) VLDL (test code = VLDL) 40 [facility]] PSA, [id number] 10:15:01 Test Item Value Reference Range Interpretation Comments Prostate Specific 1.74 ng/ml 0.00-4.00 0-4 ng/ml is clinically Antigen (test code accepted reference range = 2857-1) from theAmerica n Cancer Society in 1996 for Total PSA.A PSA value in the range of 0.1 to 0.6 ng/mL is indeterminat eif being used as an leonila cator of recurrent or re sidual disease. [facility]] TSH, 3RD GENERATION W/REFLEX TO FT4 2019-03-11 10:15:01 Test Item Value Reference Range Interpretation Comments TSH (test code = 70359-9) 0.862 {uIU/ml} 0.360-3.740 [facility]] URINALYSIS, COMPLETE W/REFLEX TO CULTURE 2019-03-11 10:15:01 Test Item Value Reference Range Interpretation Comments UA Turbidity; Abnormal (test code Slight Clear A = 91585-5) UA Spec Grav (test code = 5810-7) 1.017 <=1.030 UA pH (test code = 5803-2) 5.0 5.0-8.0 UA Protein (test code = 16158-3) Negative Negative UA Glucose (test code = 87861-9) Negative Negative UA Ketones (test code = 79396-8) Negative Negative UA Bili (test code = 5770-3) Negative Negative UA Blood (test code = 5794-3) Negative Negative UA Nitrite (test code = 5802-4) Negative Negative UA Leuk Est (test code = 5799-2) Negative Negative UA RBC (test code = 29557-5) 1 {/HPF} 0-2 UA WBC (test code = 47151-7) 1 {/HPF} 0-5 UA Bacteria (test code = 17572-9) Occasional None Seen UA Mucus (test code = 8247-9) Few None Seen UA Sq Epi (test code = 22479-0) None Seen UA Color (test code = 5778-6) Yellow UROBILINOGEN (test code = 16535-3) <=1.0 0.1-1.0 [facility]] MICROALBUMIN, RANDOM URINE (W/CREATININE) 2019-03-11 10:15:01 Test Item Value Reference Range Interpretation Comments Urine Microalbumin 7.7 mg/L No establ ished (test code = Urine reference range. Microalbumin) U Creatinine (test 115.00 mg/dl No establ ished code = 2161-8) reference ran ge. Urine Microalbuming 6.7 mg/g <=30.0 Creatinine Ratio (test code = 90437-3) [facility]] SED RATE BY MODIFIED [id number] 09:53:01 Test Item Value Reference Range Interpretation Comments Sedimentation Rate; Above High 19 {mm/hr} 0-15 Threshold (test code = 91562-5) [facility]] CBC (INCLUDES DIFF/PLT)2018-03-15 09:53:01 Test Item Value Reference Range Interpretation Comments WBC (test code = 6690-2) 5.2 {K/CMM} 3.7-10.4 RBC (test code = 789-8) 4.81 {M/CMM} 4.70-6.10 Hgb (test code = 718-7) 14.4 g/dl 14.0-18.0 Hct (test code = 59687-7) 43.6 % 42.0-54.0 MCV (test code = 787-2) 90.6 fL 80.0-94.0 MCH (test code = 785-6) 29.9 pg 27.0-31.0 MCHC (test code = 786-4) 32.9 g/dl 32.0-36.0 RDW (test code = 788-0) 14.0 % 11.5-14.5 Platelet (test code = 68077-9) 212 {K/CMM} 133-450 Mean Platelet Volume (test code 10.3 fL 7.4-10.4 = 16585-7) [facility]] [id number] 09:53:01 Test Item Value Reference Range Interpretation Comments Segmented Neutrophils (test code 60.1 % 45.0-75.0 = 84281-0) Monocytes (test code = 93985-9) 9.6 % 2.0-12.0 Lymphocytes (test code = 64891-0) 23.4 % 20.0-40.0 Eosinophils; Above High Threshold 6.2 % 0.0-4.0 (test code = 59763-0) Basophils (test code = 706-2) 0.7 % 0.0-1.0 Segs-Bands # (test code = 3.1 {K/CMM} 1.5-8.1 20520-7) Lymphocytes # (test code = 1.2 {K/CMM} 1.0-5.5 45070-6) Monocytes # (test code = 86728-3) 0.5 {K/CMM} 0.0-0.8 Eosinophils # (test code = 0.3 {K/CMM} 0.0-0.5 03793-8) [facility]] MICROALBUMIN, RANDOM URINE (W/CREATININE) 2018-03-15 09:53:01 Test Item Value Reference Range Interpretation Comments U Creatinine (test 189.00 mg/dl No establ ished code = 2161-8) reference ran ges. Urine Microalbumin 11.1 mg/L (test code = Urine Microalbumin) Urine Microalbuming 5.9 {MCG/MG <=30.0 Creatinine Ratio (test CRE} code = 57541-8) [facility]] URINALYSIS, COMPLETE W/REFLEX TO CULTURE 2018-03-15 09:53:01 Test Item Value Reference Range Interpretation Comments UA Turbidity (test code = 74295-4) Clear Clear UA Spec Grav (test code = 5810-7) 1.020 <=1.030 UA pH (test code = 5803-2) 5.0 5.0-8.0 UA Protein (test code = 85072-2) Negative Negative UA Glucose (test code = 44614-4) Negative Negative UA Ketones (test code = 85181-7) Negative Negative UA Bili (test code = 5770-3) Negative Negative UA Blood (test code = 5794-3) Negative Negative UA Nitrite (test code = 5802-4) Negative Negative UA Leuk Est (test code = 5799-2) Negative Negative UA RBC (test code = 56653-7) <1 0-2 UA WBC (test code = 90787-2) <1 0-5 UA Mucus (test code = 8247-9) Few None Seen UA Sq Epi (test code = 97508-8) Occasional Few UA Color (test code = 5778-6) Yellow UROBILINOGEN (test code = 96453-0) <=1.0 0.1-1.0 [facility]] HEPATITIS C [id number] 09:53:01 Test Item Value Reference Range Interpretation Comments Hepatitis C Antibody (test code = Negative 75018-7) [facility][] HIV AB, HIV 1/2, EIA, WITH [id number] 09:53:01 Test Item Value Reference Range Interpretation Comments HIV Ag/Ab 4th Gen Negative Negative HIV test r esults should be (test code = considered posi tive only 89984-8) when both the s creening andthe confirma tory tests are positive. A negative confirmatory te st in patientswith a positive screening test does not exclude HIV inf ection. If clincallywarran rubina, an HIV RNA quantitativ e test should be order ed. [facility]] CMP [id number] 09:53:01 Test Item Value Reference Range Interpretation Comments Sodium Level 143 {mEq/l} 135-145 (test code = 2951-2) Potassium Level 4.1 {mEq/l} 3.5-5.1 (test code = 2823-3) Chloride Level 107 {mEq/l} 95-109 (test code = 2075-0) Carbon Dioxide 25 {mEq/l} 24-32 (test code = 2027-9) AGAP (test code = 15.1 {mEq/l} 10.0-20.0 67324-5) Glucose Lvl (test 95 mg/dl 70-99 Adult refe rence range code = 2345-7) values reflec t the clinical guidel inesof the [place] [employer]et es [employer]. Creatinine Lvl 0.90 mg/dl 0.50-1.40 (test code = 2160-0) Blood Urea 16 mg/dl 7-22 Nitrogen (test code = 3094-0) BUN/Creatinine 18 6-25 Ratio (test code = 3097-3) Total Protein 7.6 g/dl 6.4-8.4 (test code = 2885-2) Albumin Lvl (test 4.1 g/dl 3.5-5.0 code = 1751-7) Globulin (test 3.5 g/dl 2.7-4.2 code = 36392-3) A/G Ratio (test 1.2 0.7-1.6 code = 1759-0) Calcium Level 10.1 mg/dl 8.5-10.5 Total (test code = 93606-7) ALT (test code = 38 u/l 0-65 1743-4) AST (test code = 22 u/l 0-37 48726-5) Bili Total (test 0.5 mg/dl 0.2-1.3 code = 1974-2) Alk Phos (test 60 u/l 39-136 code = 1783-0) eGFR (test code = 102 The eGFR i s calculated 03272-3) {ML/MIN/1.7} using the CKD-E PI formula. In mos t young, healthyindividu als the eGFR will be >9 0 mL/min/1.73m2. The eGFR declines with a ge. AneGFR of 60-89 may be normal in some population s, particularly th e elderly, forwhom the CKD -EPI formula has not been extensively tyesha idated. Use of the eGFR isnot recommended in the following populations:Ind ividuals with unstable c reatinine concentrations, including patient s and those with seri ous co-morbid conditions.Alvina ents with extremes in mus milly mass or diet.The mega a above are obtained fr om the National Kidney Disease Education Progr am(NKDEP) which additiona lly recommends that when the eGFR is used in patientswith ex tremes of body mass index for purposes of narciso g dosing, the eGFR should be multiplied by t he estimated BMI. [facility]] LIPID [id number] 09:53:01 Test Item Value Reference Range Interpretation Comments Chol; Above High Threshold (test 202 mg/dl <=199 code = 2093-3) Trig (test code = 2571-8) 127 mg/dl <=149 HDL Cholesterol; Below Low 53 mg/dl >=61 Threshold (test code = 2085-9) CHD Risk; Below Low Threshold (test 3.81 4.00-7.30 code = 96479-9) LDL; Above High Threshold (test 124 mg/dl <=99 code = 19680-8) VLDL (test code = VLDL) 25 [facility]] RHEUMATOID [id number] 09:53:01 Test Item Value Reference Range Interpretation Comments Rheumatoid Factor Quantitative (test <10 0-20 code = 36535-7) [facility]] URIC [id number] 09:53:01 Test Item Value Reference Range Interpretation Comments Uric Acid (test code = 3084-1) 7.5 mg/dl 3.8-8.0 [facility]] TSH, 3RD GENERATION W/REFLEX TO FT4 2018-03-15 09:53:01 Test Item Value Reference Range Interpretation Comments TSH (test code = 77265-1) 1.090 {uIU/ml} 0.360-3.740 [facility]] PSA, [id number] 09:53:01 Test Item Value Reference Range Interpretation Comments Prostate Specific 2.65 ng/ml 0.00-4.00 0-4 ng/ml is clinically Antigen (test code accepted reference range = 2857-1) from theAmerica n Cancer Society in 1996 for Total PSA.A PSA value in the range of 0.1 to 0.6 ng/mL is indeterminat eif being used as an leonila cator of recurrent or re sidual disease. [facility]] HEMOGLOBIN [id number] 09:53:01 Test Item Value Reference Range Interpretation Comments Hemoglobin A1c; Above High Threshold 6.0 % <=5.6 (test code = 4548-4) [facility]] LUL PANEL, [id number] 09:53:01 Test Item Value Reference Range Interpretation Comments Antinuclear Antibody Screen (test Negative Negative code = 36204-2) [facility]
== END 2021-04-02 08:45 | disposition home or self-care (01) ==
LOC: ER 14:17 → ERHOLD 18:04 → 2ND 21:51
PROVIDERS: ADMIT Hospitalist; ATTEND Hospitalist
DX: R55 Syncope and collapse (principal); I95.9 Hypotension, unspecified; I10 Essential (primary) hypertension; N40.0 Benign prostatic hyperplasia without lower urinary tract symptoms; E78.00 Pure hypercholesterolemia, unspecified; Z20.822 Contact with and (suspected) exposure to COVID-19
CPT/HCPCS: 96361; 93005; 85025; 80048 ×2; 36415; 83735 ×2; 82550; 85610; 80076; 85730; 84443; 81003; 84484; 82553; 84439; 83690; 70450; 72125; 94760 ×2; 96360; 99284; U0003; J7030; G0378 ×2